=== PATIENT | female | born 1975 | race African-American/Black ===

== ENCOUNTER 2017-06-21 19:19 | Emergency (ER) | payer OTHER ==
[2017-06-21 19:38] VITALS: BP 159/91
--- NOTE | 2017-06-21 20:40 | RAD ---
INDICATION: Right foot pain COMPARISON: None TECHNIQUE: AP, lateral, and oblique views were obtained. FINDINGS: The bony structures, joint spaces, and soft tissues are normal for age. IMPRESSION: NO ACUTE FRACTURE
[2017-06-21] MEDS ORDERED: Ibuprofen TAB* 600 MG PO ONE (21:06)
--- NOTE | 2017-06-21 21:46 | UC ---
Lower Extremity/Ankle HPI - HPI Summary HPI Summary: Patient states she stubbed her right big and 2nd toe this morning prior to start her 3.5hr drive here. She took ibuprofen in the morning but states pain has become worse with the driving. - History of Current Complaint Chief Complaint: UCLowerExtremity Stated Complaint: TOE INJURY Time Seen by Provider: 06/21/17 20:13 Hx Obtained From: Patient Hx Last Menstrual Period: 06/16/17 Onset/Duration: Sudden Onset, Lasting Hours Severity Initially: Mild Severity Currently: Moderate Pain Intensity: 4 Pain Scale Used: 0-10 Numeric Aggravating Factor(s): Standing, Ambulation Alleviating Factor(s): Rest, Elevation Able to Bear Weight: Yes - Risk Factors Gout Risk Factors: Negative DVT Risk Factors: Negative Septic Arthritis Risk Factor: Negative - Allergies/Home Medications Allergies/Adverse Reactions: Allergies Allergy/AdvReac Type Severity Reaction Status Date / Time No Known Allergies Allergy Verified 06/21/17 19:38 Home Medications: Home Medications Ibuprofen TAB* [Advil TAB*] 1 tab PO ONCE PRN 06/21/17 [History Confirmed ] PMH/Surg Hx/FS Hx/Imm Hx Previously Healthy: Yes - Surgical History Surgical History: Yes Surgery Procedure, Year, and Place: - Social History Alcohol Use: None Substance Use Type: None Smoking Status (MU): Never Smoked Tobacco Review of Systems Constitutional: Negative Musculoskeletal: Arthralgia All Other Systems Reviewed And Are Negative: Yes Physical Exam Triage Information Reviewed: Yes Appearance: Well-Appearing, Obese Vital Signs: Initial Vital Signs Temp 98.6 F 06/21/17 19:34 Pulse 98 06/21/17 19:34 Resp 18 06/21/17 19:34 BP 159/91 06/21/17 19:34 Pulse Ox 100 06/21/17 19:34 Vital Signs Reviewed: Yes Eyes: Positive: Conjunctiva Clear Neck: Positive: Supple, Nontender Respiratory: Positive: Chest non-tender Cardiovascular: Positive: Pulses Normal, Brisk Capillary Refill Musculoskeletal: Positive: Strength Intact, ROM Intact, No Edema, Other: - tender upon palpation on right big toe and second toe, tender along right second metatarsal. No deformities, skin changes, erythema or edema Lower Extremity Course/Dx - Course Course Of Treatment: Xray right foot shows No fracture. Instructed to rest, elevate, compress, apply ice and take ibuprofen. Surgical shoe provided to aid locomotion - Differential Dx/Diagnosis Provider Diagnoses: Trauma Right foot without fracture Discharge - Sign-Out/Discharge Documenting (check all that apply): Discharge - Discharge Plan Condition: Stable Disposition: HOME Prescriptions: Ibuprofen TAB* [Motrin TAB* 600 MG] 600 mg PO Q6H PRN #30 tab PRN Reason: Pain Patient Education Materials: Ibuprofen (By mouth), Foot Contusion (ED) Referrals: No Primary Care Phys,NOPCP [Primary Care Provider] - - Billing Disposition and Condition Condition: STABLE Disposition: HOME
== END 2017-06-21 21:18 | disposition home or self-care (01) ==
LOC: UCEAST 19:19
DX: S99.921A Unspecified injury of right foot, initial encounter (principal); W22.8XXA Striking against or struck by other objects, initial encounter; Y93.9 Activity, unspecified; Y92.9 Unspecified place or not applicable
CPT/HCPCS: 99202; A9270-GY; G0463